=== PATIENT | male | born 1980 ===

== ENCOUNTER 2017-07-25 07:03 | Emergency (ER) | payer OTHER ==
[2017-07-25 07:15] VITALS: BP 142/92
--- NOTE | 2017-07-25 07:43 | RAD ---
INDICATION: Left great toe pain COMPARISON: None TECHNIQUE: AP, lateral, and oblique views were obtained. FINDINGS: The bony structures, joint spaces, and soft tissues are normal for age. IMPRESSION: NEGATIVE EXAMINATION.
--- NOTE | 2017-07-25 08:28 | UC ---
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 foot pain since 5pm yesterday, denies trauma or neuropathy, but does bike 120miles per week - History of Current Complaint Chief Complaint: UCLowerExtremity Stated Complaint: TOE PAIN Time Seen by Provider: 07/25/17 07:42 Hx Obtained From: Patient Onset/Duration: Sudden Onset Severity Initially: Moderate Severity Currently: Severe Pain Intensity: 8 Aggravating Factor(s): Standing, Ambulation Alleviating Factor(s): Nothing - Allergies/Home Medications Allergies/Adverse Reactions: Allergies Allergy/AdvReac Type Severity Reaction Status Date / Time ciprofloxacin Allergy Intermediate Itching Verified 07/25/17 07:15 Home Medications: Home Medications NK [No Home Medications Reported] 07/25/17 [History Confirmed 07/25/17] PMH/Surg Hx/FS Hx/Imm Hx - Additional Past Medical History Additional PMH: none Previously Healthy: Yes - Surgical History Surgical History: None Surgery Procedure, Year, and Place: denies - Social History Alcohol Use: Weekly Substance Use Type: None Smoking Status (MU): Never Smoked Tobacco Review of Systems Constitutional: Negative Skin: Negative Eyes: Negative ENT: Negative Respiratory: Negative Cardiovascular: Negative Gastrointestinal: Negative Genitourinary: Negative Motor: Negative Neurovascular: Negative Musculoskeletal: Other: - left foot pain Neurological: Negative Psychological: Negative Is Patient Immunocompromised?: No All Other Systems Reviewed And Are Negative: Yes Physical Exam Triage Information Reviewed: Yes Appearance: Well-Appearing Vital Signs: Initial Vital Signs Temp 36.2 C 07/25/17 07:09 Pulse 60 07/25/17 07:09 Resp 16 07/25/17 07:09 BP 142/92 07/25/17 07:09 Pulse Ox 100 07/25/17 07:09 Eye Exam: Normal ENT Exam: Normal Dental Exam: Normal Neck exam: Normal Neck: Positive: 1 Respiratory Exam: Normal Cardiovascular Exam: Normal Cardiovascular: Positive: RRR Abdominal Exam: Normal Musculoskeletal: Positive: Strength Intact, ROM Intact, No Edema, Other: - TTP left 1st MTJ, moderate, neg hypersensitivity to skin, NVI Neurological Exam: Normal Psychological Exam: Normal Skin Exam: Normal Lower Extremity Course/Dx - Course Course Of Treatment: XR left great toe- neg for fx - Differential Dx/Diagnosis Provider Diagnoses: left great toe metatarsal pain Discharge - Sign-Out/Discharge Documenting (check all that apply): Discharge/Admit/Transfer - Discharge Plan Condition: Stable Disposition: HOME Patient Education Materials: Metatarsalgia (DC) Referrals: GREGORY RAMOS [Doctor of Podiatric Medicine] - Additional Instructions: please follow up with podiatry if pain persists - Billing Disposition and Condition Condition: STABLE Disposition: HOME
== END 2017-07-25 08:25 | disposition home or self-care (01) ==
LOC: UCEAST 07:03
DX: M79.675 Pain in left toe(s) (principal); Z88.1 Allergy status to other antibiotic agents
CPT/HCPCS: 99202; G0463